=== PATIENT | female | born 1985 | race Two or more races ===

== ENCOUNTER 2017-11-22 11:44 | Observation (INO) | payer OTHER ==
[2017-11-22 12:54] LABS: BASO % 0.4 % (0.0-1.0); EOS % 0.1 % (0.0-3.0); HEMATOCRIT 33.4 % (36.0-47.0); HEMOGLOBIN 12.2 g/dl (12.0-15.5); IMMATURE GRANULOCYTE % 0.5 % (0-3.0); LYMPH # 1.2 10^3/uL (1.5-4.5); LYMPH % 12.8 % (24.0-44.0); MEAN CORPUSCULAR HGB CONC 36.5 g/dl (32.0-36.5); MEAN CORPUSCULAR VOLUME 90.3 fl (80.0-96.0); MONO # 0.5 10^3/uL (0.0-0.8); MONO % 5.4 % (0.0-5.0); NEUTROPHILS # 7.5 10^3/uL (1.8-7.7); NEUTROPHILS % 80.8 % (36.0-66.0); PLATELET COUNT, AUTOMATED 271 10^3/uL (150-450); RED CELL DISTRIBUTION WIDTH 11.3 % (11.5-14.5); WHITE BLOOD COUNT 9.3 10^3/uL (4.0-10.0)
[2017-11-22 13:04] LABS: INR 0.97; KETONE, URINE AUTO RFX TRACE mg/dL (NEGATIVE); LEUKOCYTE ESTERASE UR AUTO RFX NEGATIVE (NEGATIVE); MUCUS, URINE RFX SMALL (NEGATIVE); NITRITE, URINE AUTO RFX NEGATIVE (NEGATIVE); RBC, URINE AUTO RFX 1 /HPF (0-3); SPECIFIC GRAVITY UR AUTO RFX 1.011 (1.002-1.035); SQUAM EPITHELIAL CELL UR AURFX 3 /HPF (0-6); WBC, URINE AUTO RFX 2 /HPF (0-3)
[2017-11-22 13:05] LABS: PARTIAL THROMBOPLASTIN TIME 28.5 SECONDS (25.4-37.6)
[2017-11-22 13:44] LABS: ALBUMIN 4.4 GM/DL (3.2-5.2); ALBUMIN/GLOBULIN RATIO 1.63 (1.00-1.93); ALKALINE PHOSPHATASE 27 U/L (45-117); ALT/SGPT 9 U/L (12-78); AMYLASE 55 U/L (25-115); ANION GAP 11 MEQ/L (8-16); AST/SGOT 8 U/L (7-37); BILIRUBIN,DIRECT 0.2 MG/DL (0.0-0.2); BILIRUBIN,TOTAL 0.7 MG/DL (0.2-1.0); BLOOD UREA NITROGEN 9 MG/DL (7-18); CALCIUM LEVEL 9.1 MG/DL (8.5-10.1); CARBON DIOXIDE LEVEL 23 MEQ/L (21-32); CHLORIDE LEVEL 105 MEQ/L (98-107); GLOMERULAR FILTRATION RATE > 60.0 (>60); GLUCOSE, FASTING 86 MG/DL (70-100); HCG, SERUM QUANTITATIVE 32186 MIU/ML; LIPASE 151 U/L (73-393); POTASSIUM SERUM 4.4 MEQ/L (3.5-5.1); SODIUM LEVEL 139 MEQ/L (136-145); TOTAL PROTEIN 7.1 GM/DL (6.4-8.2)
[2017-11-22 14:52] LABS: THYROID STIMULATING HORMONE 0.814 uIU/ML (0.358-3.740)
[2017-11-22] MEDS: LR 1,000 ML IV ×2 (17:32→19:07)
[2017-11-22] MEDS ORDERED: PROPOFOL 200 MG/20 ML VIAL As Ordered (17:42)
[2017-11-22] MEDS ORDERED: fentaNYL 100 MCG/2 ML INJECTION (J3010) As Ordered ×2 (17:42→18:27)
[2017-11-22] MEDS ORDERED: MIDAZOLAM INJ 2 MG/2 ML VIAL (J2250) As Ordered (17:42)
[2017-11-22] MEDS ORDERED: LIDOCAINE 2% INJ 100 MG/5 ML SDV (FOR ANES.) As Ordered (17:42)
[2017-11-22] MEDS ORDERED: ROCURONIUM BROMIDE 50 MG/5 ML VIAL As Ordered (17:42)
[2017-11-22] MEDS ORDERED: NS 1,000 ML IV (18:00)
[2017-11-22] MEDS ORDERED: BUPIVACAINE HCL 0.25% 30 ML VIAL As Ordered (18:14)
[2017-11-22] MEDS ORDERED: ONDANSETRON 4MG/2ML VIAL (J2405) As Ordered (18:29)
[2017-11-22] MEDS ORDERED: dexameTHASONE 4 MG/ML 1ML VIAL (J1100) As Ordered ×2 (18:29)
[2017-11-22] MEDS ORDERED: KETOROLAC 60 MG/2 ML VIAL (J1885) As Ordered (18:49)
[2017-11-22] MEDS ORDERED: GLYCOPYRROLATE INJ 0.2 MG/ML 2 ML VIAL As Ordered (18:53)
[2017-11-22] MEDS: MEPERIDINE INJ 25 MG/ML VIAL (J2175) IV (19:12)
[2017-11-22] MEDS ORDERED: MEPERIDINE INJ 25 MG/ML VIAL (J2175) As Ordered (19:13)
[2017-11-22] MEDS ORDERED: ONDANSETRON 4MG/2ML VIAL (J2405) IV ×2 (19:30→20:15)
[2017-11-22] MEDS ORDERED: KETOROLAC 30 MG/ML VIAL (J1885) IV (19:30)
[2017-11-22] MEDS ORDERED: PERCOCET 5MG/325MG TAB PO ×2 (19:30→20:15)
[2017-11-22] MEDS ORDERED: fentaNYL 100 MCG/2 ML INJECTION (J3010) IV (20:15)
[2017-11-22] MEDS ORDERED: METOCLOPRAMIDE INJ 10MG/2ML VIAL (J2765) IV (20:15)
[2017-11-22] MEDS: DOCUSATE SODIUM 100 MG CAP PO (21:16)
[2017-11-23] MEDS: DOCUSATE SODIUM 100 MG CAP PO (08:45)
== END 2017-11-23 09:55 | disposition home or self-care (01) ==
LOC: M ED 11:44 → M SDC 17:15 → M OR 19:29 → M PED 20:15
PROVIDERS: Obstetrics & Gynecology
DX: O00.101 Right tubal pregnancy without intrauterine pregnancy (principal)
CPT/HCPCS: 59151